=== PATIENT | male | born 1960 | race Caucasian/White ===

== ENCOUNTER 2017-09-25 00:34 | Inpatient (IN) | payer MEDICAID ==
[~2017-09-25] VITALS: Ht 5787.1 cm; Wt 85.0 kg
[~2017-09-25 00:34] MED LIST: ALBU18HF2 INH; BUDE10.2 IH; DILT240C96 PO; DOCU100C23 PO; LACT10SO PO; LOSA50TA3 PO; METF850T PO
[2017-09-25] MEDS ORDERED: normal saline 1000ml 1,000 ML IV ONE (00:48)
[2017-09-25] MEDS ORDERED: methylPREDNISolone sod succ 125mg/2ml vial IV ONE (00:50)
[2017-09-25 01:43] LABS: PARTIAL THROMBOPLASTIN TIME 29 SECONDS (22-32); PROTHROMBIN TIME 10.6 SECONDS (9.0-12.0)
[2017-09-25] MEDS: albuterol 2.5 MG/3 ML nebule CONTNEB PRN ×2 (01:45→13:35)
[2017-09-25 01:50] LABS: BASOPHILS % (AUTO) 0.3 % (0-1); EOSINOPHILS % (AUTO) 0.3 % (0-6); HEMATOCRIT 38.5 % (42.0-52.0); LYMPHOCYTES # (AUTO) 0.8 X10'3 (1.1-4.8); LYMPHOCYTES % (AUTO) 9.8 % (21-51); MEAN CORPUSCULAR HEMOGLOBIN 32.6 PG (27.0-31.0); MEAN CORPUSCULAR HGB CONC 33.7 % (33.0-36.5); MEAN CORPUSCULAR VOLUME 96.7 FL (78-98); MEAN PLATELET VOLUME 7.4 FL (7.4-10.4); MONOCYTES # (AUTO) 1.1 X10'3 (0-0.9); MONOCYTES % (AUTO) 14.3 % (2-12); NEUTROPHILS # (AUTO) 5.9 X10'3 (1.8-7.7); NEUTROPHILS % (AUTO) 75.3 % (42-75); PLATELET COUNT 185 X10'3 (140-440); RED BLOOD COUNT 3.98 X10'6 (4.70-6.10); RED CELL DISTRIBUTION WIDTH 12.8 % (11.5-14.5); WHITE BLOOD COUNT 7.9 X10'3 (4.5-11.0)
[2017-09-25 01:55] LABS: ALANINE AMINOTRANSFERASE 25 U/L (12-78); ALBUMIN 3.3 G/DL (3.4-5.0); ALBUMIN/GLOBULIN RATIO 0.7 (1.1-1.5); ALKALINE PHOSPHATASE 73 IU/L (46-116); ANION GAP 4 (8-16); ASPARTATE AMINO TRANSFERASE 17 U/L (10-37); BILIRUBIN,TOTAL 0.5 MG/DL (0.1-1.0); BLOOD UREA NITROGEN 10 MG/DL (7-18); BUN/CREATININE RATIO 14.1 (5.4-32.0); CHLORIDE 95 MMOL/L (99-107); CREATININE 0.71 MG/DL (0.60-1.10); GLUCOSE 126 MG/DL (70-104); MAGNESIUM 1.6 MG/DL (1.5-2.4); POTASSIUM 3.9 MMOL/L (3.5-5.1); SODIUM 135 MMOL/L (135-145); TOTAL CARBON DIOXIDE 35.7 MMOL/L (24-32); TOTAL PROTEIN 8.3 G/DL (6.4-8.2); eGFR > 90 ML/MIN
[2017-09-25] MEDS ORDERED: CefTRIAXone 2gm/NS 100ml IVPB 100 ML IV ONE (04:30)
[2017-09-25] MEDS ORDERED: azithromycin/NS 500mg/250ml 250 ML IV ONE (04:30)
[2017-09-25] MEDS ORDERED: normal saline 1000ML IV soln IVB ONE (04:30)
[2017-09-25] MEDS ORDERED: oseltamivir phos 75mg capsule PO ONE (04:30)
[2017-09-25] MEDS ORDERED: albuterol 2.5 MG/3 ML nebule NEB ONE (04:30)
[2017-09-25] MEDS ORDERED: ACET325T53 PO (04:53)
[2017-09-25] MEDS ORDERED: TIOT18CA3 PO (04:53)
[2017-09-25] MEDS ORDERED: DILT120C51 PO (04:53)
[2017-09-25] MEDS ORDERED: ATOR20TA PO (04:53)
[2017-09-25] MEDS ORDERED: MOME13HF2 INH (04:53)
[2017-09-25] MEDS ORDERED: OMEP40CA37 PO (04:53)
[2017-09-25] MEDS: normal saline 1000ml 1,000 ML IV SCH ×3 (05:47→21:06)
[2017-09-25] MEDS ORDERED: magnesium hydroxide 30ml (MOM) UD suspension PO PRN (05:50)
[2017-09-25] MEDS ORDERED: magnesium 4gm in 100ml NS 100 ML IV PRN (05:50)
[2017-09-25] MEDS ORDERED: acetaminophen 325mg tablet PO PRN (05:50)
[2017-09-25] MEDS ORDERED: magnesium 2GM in 50ml NS 50 ML IV PRN (05:50)
[2017-09-25] MEDS ORDERED: ondansetron/PF 4mg/2ml inj IV PRN (05:50)
[2017-09-25] MEDS ORDERED: potassium Cl 20 mEq SR tablet PO PRN ×2 (05:50)
[2017-09-25] MEDS ORDERED: potassium Cl 40MEQ/NS 500ml 500 ML IV PRN ×2 (05:50)
[2017-09-25] MEDS ORDERED: magnesium Cl slow-release 64mg tablet PO PRN (05:50)
[2017-09-25] MEDS ORDERED: mag hydrox/Alum hydrox/simeth 30ml oral suspension PO PRN (05:50)
[2017-09-25] MEDS ORDERED: etomidate 2mg/ml inj. ONE (06:00)
[2017-09-25] MEDS ORDERED: rocuronium 10mg/ml inj IV ONE (06:00)
[2017-09-25 06:16] LABS: PLATELET ESTIMATE NORMAL; TOTAL CELLS COUNTED 100
[2017-09-25 06:32] LABS: HEMOGLOBIN A1C 5.5 % (4.5-6.2)
[2017-09-25] MEDS: K and/or MAG REPLACEMENT MC SCH (06:45)
[2017-09-25] MEDS: pantoprazole 40mg Tablet.DR PO SCH (07:35)
[2017-09-25] MEDS ORDERED: metFORMIN 850mg tablet PO SCH (08:00)
[2017-09-25] MEDS: CefTRIAXone 2gm/NS 100ml IVPB 100 ML IV SCH (08:35)
[2017-09-25] MEDS: diltiazem CD 120mg capsule (once-daily) PO SCH (08:35)
[2017-09-25] MEDS: oseltamivir phos 75mg capsule PO SCH ×2 (08:37→21:03)
[2017-09-25] MEDS: heparin, porcine 5000 units/ml vial SQ SCH ×2 (08:40→21:04)
[2017-09-25 10:15] VITALS: BP 153/84
[2017-09-25 11:41] VITALS: BP 138/69
[2017-09-25] MEDS ORDERED: ipratropium/albuterol 3ml nebule ONE (13:50)
[2017-09-25] MEDS: ipratropium/albuterol 3ml nebule NEB PRN ×2 (13:55→21:22)
[2017-09-25] MEDS ORDERED: glucagon, human recombinant 1mg kit SUBCUT PRN (14:30)
[2017-09-25] MEDS ORDERED: dextrose ORAL solution 15 GM/59 ML bottle PO PRN ×2 (14:30)
[2017-09-25] MEDS ORDERED: MESSAGE TO PHARMACY PO ONE (14:30)
[2017-09-25] MEDS ORDERED: dextrose 50%-water 50ml dispensing syringe IV PRN ×2 (14:30)
[2017-09-25] MEDS: methylPREDNISolone sod succ 125mg/2ml vial IV SCH (15:46)
[2017-09-25 18:00] VITALS: BP 140/77
[2017-09-25] MEDS: insulin glargine (Lantus) pen - multi-dose SQ SCH (21:00)
[2017-09-25] MEDS: atorvastatin 20mg tablet PO SCH (21:02)
[2017-09-25] MEDS: temazepam 15mg capsule PO PRN (21:03)
[2017-09-25] MEDS: lactobacillus rhamnosus 10,000 MMU CELLS/CAPSULE PO SCH (21:03)
[2017-09-26] VITALS: BP 137/76
[2017-09-26] MEDS: methylPREDNISolone sod succ 125mg/2ml vial IV SCH ×3 (01:36→16:08)
[2017-09-26 05:26] LABS: BASOPHILS % (AUTO) 0 % (0-1); EOSINOPHILS # (AUTO) 0.1 X10'3 (0-0.9); EOSINOPHILS % (AUTO) 0.6 % (0-6); HEMATOCRIT 33.7 % (42.0-52.0); HEMOGLOBIN 11.4 g/dl (14.0-17.9); LYMPHOCYTES # (AUTO) 0.8 X10'3 (1.1-4.8); LYMPHOCYTES % (AUTO) 7.6 % (21-51); MEAN CORPUSCULAR HEMOGLOBIN 33.1 PG (27.0-31.0); MEAN CORPUSCULAR HGB CONC 33.9 % (33.0-36.5); MEAN CORPUSCULAR VOLUME 97.4 FL (78-98); MEAN PLATELET VOLUME 7.2 FL (7.4-10.4); MONOCYTES # (AUTO) 0.9 X10'3 (0-0.9); MONOCYTES % (AUTO) 8.6 % (2-12); NEUTROPHILS # (AUTO) 8.6 X10'3 (1.8-7.7); NEUTROPHILS % (AUTO) 83.2 % (42-75); PLATELET COUNT 186 X10'3 (140-440); RED BLOOD COUNT 3.46 X10'6 (4.70-6.10); RED CELL DISTRIBUTION WIDTH 13.4 % (11.5-14.5); WHITE BLOOD COUNT 10.3 X10'3 (4.5-11.0)
[2017-09-26 05:53] LABS: ALBUMIN 2.9 G/DL (3.4-5.0); ANION GAP 8 (8-16); BLOOD UREA NITROGEN 15 MG/DL (7-18); BUN/CREATININE RATIO 21.1 (5.4-32.0); CALCIUM 8.6 MG/DL (8.5-10.1); CHLORIDE 102 MMOL/L (99-107); CHOL/HDL RATIO 4.5 (0.00-4.99); CHOLESTEROL 140 MG/DL (0-200); CREATININE 0.71 MG/DL (0.60-1.10); GLUCOSE 125 MG/DL (70-104); HDL CHOLESTEROL 31 MG/DL (35-60); LDL CHOLESTEROL 73 MG/DL (50-100); POTASSIUM 4.4 MMOL/L (3.5-5.1); SODIUM 142 MMOL/L (135-145); TOTAL CARBON DIOXIDE 32.5 MMOL/L (24-32); TRIGLYCERIDES 154 MG/DL (20-135); eGFR > 90 ML/MIN
[2017-09-26 06:44] VITALS: BP 140/66
[2017-09-26] MEDS: ipratropium/albuterol 3ml nebule NEB PRN ×3 (07:40→21:50)
[2017-09-26] MEDS: CefTRIAXone 2gm/NS 100ml IVPB 100 ML IV SCH (07:50)
[2017-09-26] MEDS: diltiazem CD 120mg capsule (once-daily) PO SCH (08:00)
[2017-09-26] MEDS: K and/or MAG REPLACEMENT MC SCH (08:00)
[2017-09-26] MEDS: pantoprazole 40mg Tablet.DR PO SCH (08:00)
[2017-09-26] MEDS: oseltamivir phos 75mg capsule PO SCH ×2 (08:01→21:08)
[2017-09-26] MEDS: lactobacillus rhamnosus 10,000 MMU CELLS/CAPSULE PO SCH ×2 (08:02→21:08)
[2017-09-26] MEDS: heparin, porcine 5000 units/ml vial SQ SCH ×2 (08:03→21:09)
[2017-09-26] MEDS: normal saline 1000ml 1,000 ML IV SCH ×2 (09:47→21:58)
[2017-09-26 11:45] VITALS: BP 158/83
[2017-09-26 20:01] VITALS: BP 154/84
[2017-09-26] MEDS: insulin glargine (Lantus) pen - multi-dose SQ SCH (21:00)
[2017-09-26] MEDS: atorvastatin 20mg tablet PO SCH (21:08)
[2017-09-26] MEDS: temazepam 15mg capsule PO PRN (21:08)
[2017-09-26] MEDS: HYDROcodone/acetaminophen 5mg/325mg tablet PO PRN (21:09)
[2017-09-27] VITALS: BP 148/79
[2017-09-27] MEDS: methylPREDNISolone sod succ 125mg/2ml vial IV SCH ×4 (01:05→23:49)
[2017-09-27 05:10] LABS: BASOPHILS % (AUTO) 0 % (0-1); EOSINOPHILS % (AUTO) 0 % (0-6); HEMATOCRIT 32.1 % (42.0-52.0); HEMOGLOBIN 10.8 g/dl (14.0-17.9); LYMPHOCYTES # (AUTO) 0.8 X10'3 (1.1-4.8); MEAN CORPUSCULAR HEMOGLOBIN 32.3 PG (27.0-31.0); MEAN CORPUSCULAR HGB CONC 33.7 % (33.0-36.5); MEAN CORPUSCULAR VOLUME 95.8 FL (78-98); MEAN PLATELET VOLUME 6.9 FL (7.4-10.4); MONOCYTES % (AUTO) 5.8 % (2-12); NEUTROPHILS # (AUTO) 14.9 X10'3 (1.8-7.7); NEUTROPHILS % (AUTO) 89.2 % (42-75); PLATELET COUNT 195 X10'3 (140-440); RED BLOOD COUNT 3.35 X10'6 (4.70-6.10); RED CELL DISTRIBUTION WIDTH 13.3 % (11.5-14.5); WHITE BLOOD COUNT 16.7 X10'3 (4.5-11.0)
[2017-09-27 05:40] LABS: ALBUMIN 2.7 G/DL (3.4-5.0); ANION GAP 6 (8-16); BLOOD UREA NITROGEN 13 MG/DL (7-18); BUN/CREATININE RATIO 18.8 (5.4-32.0); CALCIUM 7.9 MG/DL (8.5-10.1); CHLORIDE 103 MMOL/L (99-107); CREATININE 0.69 MG/DL (0.60-1.10); GLUCOSE 155 MG/DL (70-104); SODIUM 142 MMOL/L (135-145); TOTAL CARBON DIOXIDE 33.3 MMOL/L (24-32); eGFR > 90 ML/MIN
[2017-09-27] MEDS: K and/or MAG REPLACEMENT MC SCH (06:40)
[2017-09-27 06:44] LABS: BANDS% (MANUAL) 10 % (0-10); LYMPHOCYTES % (MANUAL) 5 % (21-51); MONOCYTES % (MANUAL) 8 % (2-12); MYELOCYTES % (MANUAL) 1 % (0-0); NEUTROPHILS % (MANUAL) 76 % (42-75); PLATELET ESTIMATE NORMAL; TOTAL CELLS COUNTED 100
[2017-09-27] MEDS: CefTRIAXone 2gm/NS 100ml IVPB 100 ML IV SCH (06:58)
[2017-09-27] MEDS: heparin, porcine 5000 units/ml vial SQ SCH ×2 (06:58→20:23)
[2017-09-27] MEDS: oseltamivir phos 75mg capsule PO SCH ×2 (07:00→20:23)
[2017-09-27] MEDS: lactobacillus rhamnosus 10,000 MMU CELLS/CAPSULE PO SCH ×2 (07:00→20:23)
[2017-09-27] MEDS: pantoprazole 40mg Tablet.DR PO SCH (07:00)
[2017-09-27] MEDS: diltiazem CD 120mg capsule (once-daily) PO SCH (07:00)
[2017-09-27] MEDS: normal saline 1000ml 1,000 ML IV SCH ×2 (07:01→17:06)
[2017-09-27] MEDS: ipratropium/albuterol 3ml nebule NEB PRN ×4 (07:15→23:46)
[2017-09-27 07:26] VITALS: BP 148/79
[2017-09-27 11:37] VITALS: BP 142/76
[2017-09-27] MEDS: HYDROcodone/acetaminophen 10/325mg tab PO PRN ×2 (12:24→20:26)
[2017-09-27 14:20] VITALS: BP 163/89
[2017-09-27] MEDS ORDERED: pantoprazole 40 MG vial IV ONE (19:30)
[2017-09-27 20:00] VITALS: BP 160/88
[2017-09-27] MEDS: atorvastatin 20mg tablet PO SCH (20:23)
[2017-09-27] MEDS: insulin glargine (Lantus) pen - multi-dose SQ SCH (20:54)
[2017-09-28] VITALS: BP 164/79
[2017-09-28] MEDS: normal saline 1000ml 1,000 ML IV SCH ×3 (04:00→23:31)
[2017-09-28 05:21] LABS: BASOPHILS % (AUTO) 0 % (0-1); EOSINOPHILS # (AUTO) 0.1 X10'3 (0-0.9); EOSINOPHILS % (AUTO) 0.7 % (0-6); HEMATOCRIT 33.9 % (42.0-52.0); HEMOGLOBIN 11.5 g/dl (14.0-17.9); LYMPHOCYTES # (AUTO) 0.7 X10'3 (1.1-4.8); LYMPHOCYTES % (AUTO) 4.4 % (21-51); MEAN CORPUSCULAR HEMOGLOBIN 32.8 PG (27.0-31.0); MEAN CORPUSCULAR HGB CONC 33.9 % (33.0-36.5); MEAN CORPUSCULAR VOLUME 96.8 FL (78-98); MEAN PLATELET VOLUME 7.4 FL (7.4-10.4); MONOCYTES # (AUTO) 0.6 X10'3 (0-0.9); MONOCYTES % (AUTO) 3.6 % (2-12); NEUTROPHILS # (AUTO) 14.6 X10'3 (1.8-7.7); NEUTROPHILS % (AUTO) 91.3 % (42-75); PLATELET COUNT 166 X10'3 (140-440); RED BLOOD COUNT 3.51 X10'6 (4.70-6.10); RED CELL DISTRIBUTION WIDTH 13.4 % (11.5-14.5)
[2017-09-28] MEDS: ipratropium/albuterol 3ml nebule NEB PRN ×4 (05:25→16:07)
[2017-09-28 05:35] LABS: ALBUMIN 2.9 G/DL (3.4-5.0); ANION GAP 6 (8-16); BLOOD UREA NITROGEN 12 MG/DL (7-18); BUN/CREATININE RATIO 16.9 (5.4-32.0); CALCIUM 8.1 MG/DL (8.5-10.1); CHLORIDE 102 MMOL/L (99-107); CREATININE 0.71 MG/DL (0.60-1.10); GLUCOSE 166 MG/DL (70-104); MAGNESIUM 2.1 MG/DL (1.5-2.4); POTASSIUM 3.7 MMOL/L (3.5-5.1); SODIUM 141 MMOL/L (135-145); TOTAL CARBON DIOXIDE 32.9 MMOL/L (24-32); eGFR > 90 ML/MIN
[2017-09-28 07:00] VITALS: BP 183/85
[2017-09-28 07:11] LABS: BANDS% (MANUAL) 4 % (0-10); LYMPHOCYTES % (MANUAL) 2 % (21-51); MONOCYTES % (MANUAL) 4 % (2-12); NEUTROPHILS % (MANUAL) 90 % (42-75); TOTAL CELLS COUNTED 100
[2017-09-28 07:12] LABS: PLATELET ESTIMATE NORMAL
[2017-09-28] MEDS: pantoprazole 40mg Tablet.DR PO SCH (07:13)
[2017-09-28] MEDS: lactobacillus rhamnosus 10,000 MMU CELLS/CAPSULE PO SCH ×2 (07:13→21:19)
[2017-09-28] MEDS: methylPREDNISolone sod succ 125mg/2ml vial IV SCH ×3 (07:13→23:31)
[2017-09-28] MEDS: diltiazem CD 120mg capsule (once-daily) PO SCH (07:13)
[2017-09-28] MEDS: oseltamivir phos 75mg capsule PO SCH ×2 (07:13→21:19)
[2017-09-28] MEDS: HYDROcodone/acetaminophen 10/325mg tab PO PRN (07:14)
[2017-09-28] MEDS: CefTRIAXone 2gm/NS 100ml IVPB 100 ML IV SCH (07:14)
[2017-09-28] MEDS: heparin, porcine 5000 units/ml vial SQ SCH ×2 (07:14→21:18)
[2017-09-28] MEDS: K and/or MAG REPLACEMENT MC SCH (07:30)
[2017-09-28 11:34] VITALS: BP 165/74
[2017-09-28] MEDS ORDERED: LORazepam 2 mg/ml vial IV ONE (17:05)
[2017-09-28] MEDS ORDERED: iohexol 350MG/ML 100ml bottle IV ONE (19:25)
[2017-09-28 20:00] VITALS: BP 155/79
[2017-09-28] MEDS: insulin glargine (Lantus) pen - multi-dose SQ SCH (21:00)
[2017-09-28] MEDS: atorvastatin 20mg tablet PO SCH (21:18)
[2017-09-28] MEDS: temazepam 15mg capsule PO PRN (21:21)
[2017-09-29] VITALS: BP 164/84
[2017-09-29] MEDS: ipratropium/albuterol 3ml nebule NEB PRN ×4 (03:47→18:53)
[2017-09-29 05:13] LABS: BASOPHILS % (AUTO) 0 % (0-1); EOSINOPHILS % (AUTO) 0 % (0-6); HEMATOCRIT 34.1 % (42.0-52.0); HEMOGLOBIN 11.4 g/dl (14.0-17.9); LYMPHOCYTES # (AUTO) 0.6 X10'3 (1.1-4.8); LYMPHOCYTES % (AUTO) 5.2 % (21-51); MEAN CORPUSCULAR HEMOGLOBIN 32.4 PG (27.0-31.0); MEAN CORPUSCULAR HGB CONC 33.6 % (33.0-36.5); MEAN CORPUSCULAR VOLUME 96.3 FL (78-98); MEAN PLATELET VOLUME 7.4 FL (7.4-10.4); MONOCYTES # (AUTO) 0.6 X10'3 (0-0.9); MONOCYTES % (AUTO) 5.2 % (2-12); NEUTROPHILS % (AUTO) 89.6 % (42-75); PLATELET COUNT 157 X10'3 (140-440); RED BLOOD COUNT 3.54 X10'6 (4.70-6.10); RED CELL DISTRIBUTION WIDTH 12.9 % (11.5-14.5); WHITE BLOOD COUNT 11.1 X10'3 (4.5-11.0)
[2017-09-29 05:22] LABS: ALBUMIN 2.9 G/DL (3.4-5.0); ANION GAP 5 (8-16); BLOOD UREA NITROGEN 13 MG/DL (7-18); BUN/CREATININE RATIO 22.8 (5.4-32.0); CALCIUM 8.2 MG/DL (8.5-10.1); CHLORIDE 102 MMOL/L (99-107); CREATININE 0.57 MG/DL (0.60-1.10); GLUCOSE 163 MG/DL (70-104); POTASSIUM 3.5 MMOL/L (3.5-5.1); SODIUM 143 MMOL/L (135-145); TOTAL CARBON DIOXIDE 35.7 MMOL/L (24-32); eGFR > 90 ML/MIN
[2017-09-29 07:00] VITALS: BP 187/92
[2017-09-29] MEDS: K and/or MAG REPLACEMENT MC SCH (08:00)
[2017-09-29] MEDS: lactobacillus rhamnosus 10,000 MMU CELLS/CAPSULE PO SCH ×2 (08:12→19:07)
[2017-09-29] MEDS: oseltamivir phos 75mg capsule PO SCH ×2 (08:12→19:07)
[2017-09-29] MEDS: pantoprazole 40mg Tablet.DR PO SCH (08:12)
[2017-09-29] MEDS: diltiazem CD 120mg capsule (once-daily) PO SCH (08:12)
[2017-09-29] MEDS: CefTRIAXone 2gm/NS 100ml IVPB 100 ML IV SCH (08:13)
[2017-09-29] MEDS: heparin, porcine 5000 units/ml vial SQ SCH ×2 (08:13→19:09)
[2017-09-29] MEDS: methylPREDNISolone sod succ 125mg/2ml vial IV SCH ×3 (08:13→23:33)
[2017-09-29] MEDS: normal saline 1000ml 1,000 ML IV SCH ×2 (09:51→19:10)
[2017-09-29 11:00] VITALS: BP 164/85
[2017-09-29] MEDS ORDERED: saliva stimulant agent 45ml spray MM PRN (12:20)
[2017-09-29] MEDS: insulin Lispro (HumaLOG) vial - multi-dose SQ SCH ×2 (13:12→19:07)
[2017-09-29] MEDS: LORazepam 1 MG tablet PO PRN (16:36)
[2017-09-29] MEDS: HYDROcodone/acetaminophen 10/325mg tab PO PRN (17:37)
[2017-09-29 20:00] VITALS: BP 166/71
[2017-09-29] MEDS: insulin glargine (Lantus) pen - multi-dose SQ SCH (21:05)
[2017-09-29] MEDS: atorvastatin 20mg tablet PO SCH (21:05)
[2017-09-30] VITALS (8 sets, daily range): BP systolic 90–195; BP diastolic 57–98
[2017-09-30] MEDS: ipratropium/albuterol 3ml nebule NEB PRN ×3 (03:00→15:16)
[2017-09-30] MEDS: normal saline 1000ml 1,000 ML IV SCH (05:25)
[2017-09-30 05:58] LABS: BASOPHILS % (AUTO) 0.2 % (0-1); EOSINOPHILS % (AUTO) 0 % (0-6); HEMATOCRIT 38.3 % (42.0-52.0); LYMPHOCYTES # (AUTO) 0.6 X10'3 (1.1-4.8); LYMPHOCYTES % (AUTO) 8.3 % (21-51); MEAN CORPUSCULAR HEMOGLOBIN 32.7 PG (27.0-31.0); MEAN CORPUSCULAR HGB CONC 33.9 % (33.0-36.5); MEAN CORPUSCULAR VOLUME 96.5 FL (78-98); MEAN PLATELET VOLUME 7.6 FL (7.4-10.4); MONOCYTES # (AUTO) 0.4 X10'3 (0-0.9); MONOCYTES % (AUTO) 5.8 % (2-12); NEUTROPHILS # (AUTO) 6.1 X10'3 (1.8-7.7); NEUTROPHILS % (AUTO) 85.7 % (42-75); PLATELET COUNT 170 X10'3 (140-440); RED BLOOD COUNT 3.97 X10'6 (4.70-6.10); RED CELL DISTRIBUTION WIDTH 13.2 % (11.5-14.5); WHITE BLOOD COUNT 7.1 X10'3 (4.5-11.0)
[2017-09-30 06:16] LABS: ALBUMIN 3.1 G/DL (3.4-5.0); ANION GAP 8 (8-16); BLOOD UREA NITROGEN 15 MG/DL (7-18); BUN/CREATININE RATIO 17.6 (5.4-32.0); CALCIUM 8.3 MG/DL (8.5-10.1); CHLORIDE 97 MMOL/L (99-107); CREATININE 0.85 MG/DL (0.60-1.10); GLUCOSE 245 MG/DL (70-104); SODIUM 141 MMOL/L (135-145); TOTAL CARBON DIOXIDE 36.2 MMOL/L (24-32); eGFR > 90 ML/MIN
[2017-09-30 07:07] LABS: PLATELET ESTIMATE NORMAL; TOTAL CELLS COUNTED 100
[2017-09-30 07:44] LABS: POTASSIUM 2.9 MMOL/L (3.5-5.1)
[2017-09-30] MEDS: K and/or MAG REPLACEMENT MC SCH (08:00)
[2017-09-30] MEDS: methylPREDNISolone sod succ 125mg/2ml vial IV SCH ×2 (08:33→15:36)
[2017-09-30] MEDS: CefTRIAXone 2gm/NS 100ml IVPB 100 ML IV SCH (08:33)
[2017-09-30] MEDS: lactobacillus rhamnosus 10,000 MMU CELLS/CAPSULE PO SCH ×2 (08:34→20:00)
[2017-09-30] MEDS: diltiazem CD 120mg capsule (once-daily) PO SCH (08:34)
[2017-09-30] MEDS: pantoprazole 40mg Tablet.DR PO SCH (08:34)
[2017-09-30] MEDS: heparin, porcine 5000 units/ml vial SQ SCH (08:34)
[2017-09-30] MEDS ORDERED: magnesium Cl slow-release 64mg tablet PO PRN (10:30)
[2017-09-30] MEDS ORDERED: magnesium 4gm in 100ml NS 100 ML IV PRN (10:30)
[2017-09-30] MEDS ORDERED: potassium Cl 40MEQ/NS 500ml 500 ML IV PRN ×2 (10:30)
[2017-09-30] MEDS ORDERED: magnesium 2GM in 50ml NS 50 ML IV PRN (10:30)
[2017-09-30] MEDS ORDERED: potassium Cl 20 mEq SR tablet PO PRN ×2 (10:30)
[2017-09-30] MEDS: insulin Lispro (HumaLOG) vial - multi-dose SQ SCH (10:47)
[2017-09-30] MEDS ORDERED: ketorolac tromethamine 15mg/ml inj. IM PRN (11:20)
[2017-09-30] MEDS ORDERED: ketorolac tromethamine 15mg/ml inj. IV PRN (11:30)
[2017-09-30] MEDS: LORazepam 1 MG tablet PO PRN (11:46)
[2017-09-30] MEDS: HYDROcodone/acetaminophen 10/325mg tab PO PRN (12:35)
[2017-09-30] MEDS ORDERED: LORazepam 2 mg/ml vial IM ONE (15:20)
[2017-09-30] MEDS ORDERED: LORazepam 2 mg/ml vial IV ONE ×5 (15:20→17:40)
[2017-09-30] MEDS ORDERED: LORazepam 2 mg/ml vial ONE (15:43)
[2017-09-30] MEDS ORDERED: iohexol 350MG/ML 100ml bottle IV ONE (16:03)
[2017-09-30 16:56] LABS: ABG BASE EXCESS -2.9 mmol/L (-2.0-3.0); ABG HCO3 25.8 mmol/L (22.0-26.0); ABG OXYGEN SATURATION 95.6 % (95-98); ABG PCO2 (T) 62.5 mmHg (35.0-48.0); ABG PH (T) 7.234 (7.350-7.450); ABG PO2 (T) 96.4 mmHg (83-108); ALLEN'S TEST Positive; FCOHb 0.1 % (0.5-1.5); FLOW 3 L/min; FMetHb 0.3 % (0.3-1.12); FO2Hb 95.2 % (94-100); TOTAL HEMOGLOBIN 14.4 G/dl (14.0-18.0)
[2017-09-30 17:06] LABS: BASOPHILS % (AUTO) 0.4 % (0-1); EOSINOPHILS # (AUTO) 0.1 X10'3 (0-0.9); EOSINOPHILS % (AUTO) 0.6 % (0-6); HEMATOCRIT 40.3 % (42.0-52.0); HEMOGLOBIN 13.5 g/dl (14.0-17.9); LYMPHOCYTES # (AUTO) 0.8 X10'3 (1.1-4.8); LYMPHOCYTES % (AUTO) 7.4 % (21-51); MEAN CORPUSCULAR HEMOGLOBIN 32.6 PG (27.0-31.0); MEAN CORPUSCULAR HGB CONC 33.6 % (33.0-36.5); MEAN CORPUSCULAR VOLUME 97.3 FL (78-98); MONOCYTES # (AUTO) 0.9 X10'3 (0-0.9); MONOCYTES % (AUTO) 8.3 % (2-12); NEUTROPHILS # (AUTO) 8.8 X10'3 (1.8-7.7); NEUTROPHILS % (AUTO) 83.3 % (42-75); PLATELET COUNT 194 X10'3 (140-440); RED BLOOD COUNT 4.14 X10'6 (4.70-6.10); RED CELL DISTRIBUTION WIDTH 12.9 % (11.5-14.5); WHITE BLOOD COUNT 10.6 X10'3 (4.5-11.0)
[2017-09-30 17:20] LABS: ALANINE AMINOTRANSFERASE 84 U/L (12-78); ALBUMIN 3.1 G/DL (3.4-5.0); ALBUMIN/GLOBULIN RATIO 0.7 (1.1-1.5); ALKALINE PHOSPHATASE 60 IU/L (46-116); ANION GAP 16 (8-16); ASPARTATE AMINO TRANSFERASE 28 U/L (10-37); BILIRUBIN,TOTAL 0.4 MG/DL (0.1-1.0); BLOOD UREA NITROGEN 17 MG/DL (7-18); BUN/CREATININE RATIO 15.9 (5.4-32.0); CALCIUM 8.3 MG/DL (8.5-10.1); CHLORIDE 96 MMOL/L (99-107); CREATININE 1.07 MG/DL (0.60-1.10); GLUCOSE 132 MG/DL (70-104); MAGNESIUM 2.1 MG/DL (1.5-2.4); SODIUM 142 MMOL/L (135-145); TOTAL CARBON DIOXIDE 30.5 MMOL/L (24-32); TOTAL PROTEIN 7.3 G/DL (6.4-8.2); eGFR 71 ML/MIN
[2017-09-30 17:36] LABS: NUCLEATED RED BLOOD CELLS 2 /100WBC (0-0); PLATELET ESTIMATE NORMAL; TOTAL CELLS COUNTED 100
[2017-09-30 17:41] LABS: CHOL/HDL RATIO 3.8 (0.00-4.99); CHOLESTEROL 153 MG/DL (0-200); HDL CHOLESTEROL 40 MG/DL (35-60); LDL CHOLESTEROL 72 MG/DL (50-100); TRIGLYCERIDES 319 MG/DL (20-135); TROPONIN I < 0.04 NG/ML (0.0-0.05)
[2017-09-30] MEDS ORDERED: levetiracetam 250mg tablet PO SCH (17:45)
[2017-09-30] MEDS ORDERED: LORazepam 2 mg/ml vial IV PRN (18:35)
[2017-09-30] MEDS: levetiracetam inj 500 MG in normal saline 100ml IV soln 95 ML IV SCH ×2 (18:42→19:28)
[2017-09-30] MEDS ORDERED: phenytoin sod 50mg/ml 2ml vial IV STA (19:31)
[2017-09-30] MEDS ORDERED: phenytoin sod inj 1,000 MG in normal saline 100ml IV soln 80 ML IV ONE (19:40)
[2017-09-30 20:30] LABS: ABG BASE EXCESS 11.1 mmol/L (-2.0-3.0); ABG HCO3 45.1 mmol/L (22.0-26.0); ABG OXYGEN SATURATION 94.4 % (95-98); ABG PCO2 (T) 128.8 mmHg (35.0-48.0); ABG PH (T) 7.161 (7.350-7.450); ABG PO2 (T) 96.3 mmHg (83-108); FLOW 10 L/min; FMetHb 0.5 % (0.3-1.12); FO2Hb 93.9 % (94-100); PATIENT TEMPERATURE 36.9; RESPIRATORY RATE (OBSERVED) 16 b/min; TOTAL HEMOGLOBIN 13.8 G/dl (14.0-18.0)
[2017-09-30] MEDS ORDERED: propofol 1000mg/100ml bottle 100 ML IV PRN (20:33)
[2017-09-30] MEDS ORDERED: morphine 4 MG/ML inj SYRINge IV ONE (20:35)
[2017-09-30] MEDS ORDERED: etomidate 2mg/ml inj. IV ONE (20:35)
[2017-09-30] MEDS ORDERED: ipratropium/albuterol 3ml nebule NEB PRN (20:35)
[2017-09-30] MEDS: insulin glargine (Lantus) pen - multi-dose SQ SCH (21:00)
[2017-09-30] MEDS: atorvastatin 20mg tablet PO SCH (21:00)
[2017-09-30 21:51] LABS: ABG BASE EXCESS 2.3 mmol/L (-2.0-3.0); ABG HCO3 30.6 mmol/L (22.0-26.0); ABG OXYGEN SATURATION 94.1 % (95-98); ABG PCO2 (T) 66.1 mmHg (35.0-48.0); ABG PH (T) 7.283 (7.350-7.450); ALLEN'S TEST Positive; FCOHb 0.1 % (0.5-1.5); FMetHb 0.3 % (0.3-1.12); FO2Hb 93.7 % (94-100); MINUTE VOLUME 8 L/min; PATIENT TEMPERATURE 36.9; PEEP 5 cm H2O; RESPIRATORY RATE 20 b/min; RESPIRATORY RATE (OBSERVED) 20 b/min; TIDAL VOLUME 375 mL; TOTAL HEMOGLOBIN 12.8 G/dl (14.0-18.0)
[2017-09-30] MEDS: ipratropium/albuterol 3ml nebule NEB SCH (23:04)
[2017-10-01] VITALS (22 sets, daily range): BP systolic 104–157; BP diastolic 64–98
[2017-10-01] MEDS: phenytoin sod 50mg/ml 2ml vial IV SCH ×3 (00:32→15:40)
[2017-10-01] MEDS: methylPREDNISolone sod succ 125mg/2ml vial IV SCH ×3 (00:41→15:39)
[2017-10-01] MEDS: heparin, porcine 5000 units/ml vial SQ SCH ×3 (00:42→21:48)
[2017-10-01] MEDS ORDERED: potassium Cl 40MEQ/NS 500ml 500 ML IV ONE (00:55)
[2017-10-01] MEDS: ipratropium/albuterol 3ml nebule NEB SCH ×6 (03:01→23:20)
[2017-10-01 03:50] LABS: ABG BASE EXCESS 9.1 mmol/L (-2.0-3.0); ABG HCO3 35.6 mmol/L (22.0-26.0); ABG OXYGEN SATURATION 89.7 % (95-98); ABG PCO2 (T) 57.1 mmHg (35.0-48.0); ABG PH (T) 7.413 (7.350-7.450); ABG PO2 (T) 61.6 mmHg (83-108); ALLEN'S TEST Positive; FCOHb 0.5 % (0.5-1.5); FMetHb 0.1 % (0.3-1.12); FO2Hb 89.2 % (94-100); MINUTE VOLUME 9 L/min; PEEP 5 cm H2O; RESPIRATORY RATE 22 b/min; RESPIRATORY RATE (OBSERVED) 22 b/min; TIDAL VOLUME 400 mL; TOTAL HEMOGLOBIN 13.1 G/dl (14.0-18.0)
[2017-10-01 06:41] LABS: BASOPHILS % (AUTO) 0.1 % (0-1); EOSINOPHILS % (AUTO) 0.2 % (0-6); HEMATOCRIT 36.2 % (42.0-52.0); HEMOGLOBIN 12.4 g/dl (14.0-17.9); LYMPHOCYTES # (AUTO) 0.7 X10'3 (1.1-4.8); LYMPHOCYTES % (AUTO) 7.4 % (21-51); MEAN CORPUSCULAR HEMOGLOBIN 32.8 PG (27.0-31.0); MEAN CORPUSCULAR HGB CONC 34.3 % (33.0-36.5); MEAN CORPUSCULAR VOLUME 95.6 FL (78-98); MEAN PLATELET VOLUME 8.1 FL (7.4-10.4); MONOCYTES # (AUTO) 0.9 X10'3 (0-0.9); NEUTROPHILS % (AUTO) 83.3 % (42-75); PLATELET COUNT 149 X10'3 (140-440); RED BLOOD COUNT 3.79 X10'6 (4.70-6.10); RED CELL DISTRIBUTION WIDTH 13.4 % (11.5-14.5); WHITE BLOOD COUNT 9.6 X10'3 (4.5-11.0)
[2017-10-01] MEDS: morphine/NS 100mg/100ml bag 100 ML IV SCH (06:56)
[2017-10-01 07:17] LABS: ALANINE AMINOTRANSFERASE 67 U/L (12-78); ALBUMIN 2.8 G/DL (3.4-5.0); ALBUMIN/GLOBULIN RATIO 0.8 (1.1-1.5); ALKALINE PHOSPHATASE 48 IU/L (46-116); ANION GAP 8 (8-16); ASPARTATE AMINO TRANSFERASE 20 U/L (10-37); BILIRUBIN,TOTAL 0.5 MG/DL (0.1-1.0); BLOOD UREA NITROGEN 24 MG/DL (7-18); CALCIUM 7.8 MG/DL (8.5-10.1); CHLORIDE 102 MMOL/L (99-107); GLUCOSE 191 MG/DL (70-104); MAGNESIUM 2.4 MG/DL (1.5-2.4); PHENYTOIN (DILANTIN) 14.9 UG/ML (10.0-20.0); PHOSPHORUS 3.4 MG/DL (2.3-4.5); POTASSIUM 3.5 MMOL/L (3.5-5.1); SODIUM 143 MMOL/L (135-145); TOTAL CARBON DIOXIDE 32.6 MMOL/L (24-32); TOTAL PROTEIN 6.1 G/DL (6.4-8.2); eGFR > 90 ML/MIN
[2017-10-01] MEDS: pantoprazole 40mg Tablet.DR PO SCH (07:30)
[2017-10-01] MEDS: CefTRIAXone 2gm/NS 100ml IVPB 100 ML IV SCH (07:42)
[2017-10-01] MEDS: levetiracetam inj 500 MG in normal saline 100ml IV soln 95 ML IV SCH ×2 (07:42→22:20)
[2017-10-01] MEDS: lactobacillus rhamnosus 10,000 MMU CELLS/CAPSULE PO SCH ×2 (08:00→21:47)
[2017-10-01] MEDS: diltiazem CD 120mg capsule (once-daily) PO SCH (08:00)
[2017-10-01] MEDS ORDERED: azithromycin/NS 500mg/250ml 250 ML IV SCH (08:00)
[2017-10-01] MEDS: K and/or MAG REPLACEMENT MC SCH (08:03)
[2017-10-01] MEDS: insulin Lispro (HumaLOG) vial - multi-dose SQ SCH ×3 (09:50→21:43)
[2017-10-01] MEDS: insulin glargine (Lantus) pen - multi-dose SQ SCH (21:44)
[2017-10-01] MEDS: atorvastatin 20mg tablet PO SCH (21:49)
[2017-10-02] VITALS (21 sets, daily range): BP systolic 119–180; BP diastolic 62–91
[2017-10-02] MEDS: methylPREDNISolone sod succ 125mg/2ml vial IV SCH ×3 (00:49→17:57)
[2017-10-02] MEDS: phenytoin sod 50mg/ml 2ml vial IV SCH ×3 (00:52→17:57)
[2017-10-02] MEDS: mineral oil/petrolatum ophthal oint EACHEYE SCH ×4 (02:00→20:00)
[2017-10-02] MEDS: ipratropium/albuterol 3ml nebule NEB SCH ×5 (03:16→21:39)
[2017-10-02 04:25] LABS: ABG BASE EXCESS 7.5 mmol/L (-2.0-3.0); ABG HCO3 33.6 mmol/L (22.0-26.0); ABG OXYGEN SATURATION 90.7 % (95-98); ABG PCO2 (T) 52.5 mmHg (35.0-48.0); ABG PH (T) 7.422 (7.350-7.450); ABG PO2 (T) 62.2 mmHg (83-108); ALLEN'S TEST Positive; FCOHb 0.3 % (0.5-1.5); FMetHb 0.2 % (0.3-1.12); FO2Hb 90.2 % (94-100); MINUTE VOLUME 9 L/min; PATIENT TEMPERATURE 36.4; PEEP 5 cm H2O; RESPIRATORY RATE 20 b/min; RESPIRATORY RATE (OBSERVED) 20 b/min; TIDAL VOLUME 400 mL; TOTAL HEMOGLOBIN 12.9 G/dl (14.0-18.0)
[2017-10-02 05:51] LABS: BASOPHILS % (AUTO) 0 % (0-1); EOSINOPHILS # (AUTO) 0.1 X10'3 (0-0.9); EOSINOPHILS % (AUTO) 0.8 % (0-6); HEMATOCRIT 34.9 % (42.0-52.0); HEMOGLOBIN 11.9 g/dl (14.0-17.9); LYMPHOCYTES # (AUTO) 0.5 X10'3 (1.1-4.8); LYMPHOCYTES % (AUTO) 4.8 % (21-51); MEAN CORPUSCULAR HEMOGLOBIN 32.8 PG (27.0-31.0); MEAN CORPUSCULAR HGB CONC 34.1 % (33.0-36.5); MEAN CORPUSCULAR VOLUME 96.3 FL (78-98); MEAN PLATELET VOLUME 7.8 FL (7.4-10.4); MONOCYTES # (AUTO) 0.7 X10'3 (0-0.9); MONOCYTES % (AUTO) 6.1 % (2-12); NEUTROPHILS # (AUTO) 9.8 X10'3 (1.8-7.7); NEUTROPHILS % (AUTO) 88.3 % (42-75); PLATELET COUNT 154 X10'3 (140-440); RED BLOOD COUNT 3.62 X10'6 (4.70-6.10); RED CELL DISTRIBUTION WIDTH 13.7 % (11.5-14.5); WHITE BLOOD COUNT 11.1 X10'3 (4.5-11.0)
[2017-10-02 06:49] LABS: ALANINE AMINOTRANSFERASE 52 U/L (12-78); ALBUMIN 2.7 G/DL (3.4-5.0); ALBUMIN/GLOBULIN RATIO 0.8 (1.1-1.5); ALKALINE PHOSPHATASE 45 IU/L (46-116); ANION GAP 5 (8-16); ASPARTATE AMINO TRANSFERASE 14 U/L (10-37); BILIRUBIN,TOTAL 0.4 MG/DL (0.1-1.0); BLOOD UREA NITROGEN 25 MG/DL (7-18); BUN/CREATININE RATIO 37.3 (5.4-32.0); CALCIUM 7.8 MG/DL (8.5-10.1); CHLORIDE 105 MMOL/L (99-107); CREATININE 0.67 MG/DL (0.60-1.10); GLUCOSE 150 MG/DL (70-104); MAGNESIUM 2.4 MG/DL (1.5-2.4); PHOSPHORUS 3.9 MG/DL (2.3-4.5); POTASSIUM 3.5 MMOL/L (3.5-5.1); SODIUM 146 MMOL/L (135-145); TOTAL PROTEIN 5.9 G/DL (6.4-8.2); eGFR > 90 ML/MIN
[2017-10-02] MEDS: morphine/NS 100mg/100ml bag 100 ML IV SCH (07:27)
[2017-10-02] MEDS: pantoprazole 40mg Tablet.DR PO SCH (07:30)
[2017-10-02] MEDS: K and/or MAG REPLACEMENT MC SCH (08:00)
[2017-10-02] MEDS: diltiazem CD 120mg capsule (once-daily) PO SCH (08:06)
[2017-10-02] MEDS: heparin, porcine 5000 units/ml vial SQ SCH ×2 (08:06→21:44)
[2017-10-02] MEDS: levetiracetam inj 500 MG in normal saline 100ml IV soln 95 ML IV SCH (08:07)
[2017-10-02] MEDS: lactobacillus rhamnosus 10,000 MMU CELLS/CAPSULE PO SCH ×2 (08:07→21:42)
[2017-10-02] MEDS ORDERED: racepinephrine 11.25mg/0.5ml nebule NEB PRN (13:50)
[2017-10-02] MEDS ORDERED: ipratropium/albuterol 3ml nebule NEB PRN (13:50)
[2017-10-02] MEDS: insulin glargine (Lantus) pen - multi-dose SQ SCH (21:00)
[2017-10-02] MEDS: levetiracetam 250mg tablet PO SCH (21:42)
[2017-10-02] MEDS: atorvastatin 20mg tablet PO SCH (21:45)
[2017-10-02] MEDS: LORazepam 1 MG tablet PO PRN (22:56)
[2017-10-03] VITALS (13 sets, daily range): BP systolic 122–174; BP diastolic 40–86
[2017-10-03] MEDS: methylPREDNISolone sod succ 125mg/2ml vial IV SCH ×2 (00:06→08:22)
[2017-10-03] MEDS: phenytoin sod 50mg/ml 2ml vial IV SCH ×2 (00:06→08:22)
[2017-10-03] MEDS: mineral oil/petrolatum ophthal oint EACHEYE SCH ×2 (02:00→08:00)
[2017-10-03] MEDS: ipratropium/albuterol 3ml nebule NEB SCH ×5 (03:00→21:00)
[2017-10-03 05:42] LABS: BASOPHILS % (AUTO) 0.1 % (0-1); EOSINOPHILS # (AUTO) 0.1 X10'3 (0-0.9); EOSINOPHILS % (AUTO) 0.6 % (0-6); HEMATOCRIT 36.3 % (42.0-52.0); HEMOGLOBIN 12.5 g/dl (14.0-17.9); LYMPHOCYTES # (AUTO) 0.5 X10'3 (1.1-4.8); LYMPHOCYTES % (AUTO) 5.9 % (21-51); MEAN CORPUSCULAR HEMOGLOBIN 33.2 PG (27.0-31.0); MEAN CORPUSCULAR HGB CONC 34.4 % (33.0-36.5); MEAN CORPUSCULAR VOLUME 96.5 FL (78-98); MEAN PLATELET VOLUME 7.7 FL (7.4-10.4); MONOCYTES % (AUTO) 0.4 % (2-12); NEUTROPHILS # (AUTO) 8.4 X10'3 (1.8-7.7); PLATELET COUNT 132 X10'3 (140-440); RED BLOOD COUNT 3.76 X10'6 (4.70-6.10); RED CELL DISTRIBUTION WIDTH 13.2 % (11.5-14.5); WHITE BLOOD COUNT 9.1 X10'3 (4.5-11.0)
[2017-10-03 06:21] LABS: ALANINE AMINOTRANSFERASE 65 U/L (12-78); ALBUMIN 2.7 G/DL (3.4-5.0); ALBUMIN/GLOBULIN RATIO 0.8 (1.1-1.5); ALKALINE PHOSPHATASE 50 IU/L (46-116); ANION GAP 4 (8-16); ASPARTATE AMINO TRANSFERASE 28 U/L (10-37); BILIRUBIN,TOTAL 0.6 MG/DL (0.1-1.0); BLOOD UREA NITROGEN 20 MG/DL (7-18); BUN/CREATININE RATIO 35.1 (5.4-32.0); CALCIUM 7.7 MG/DL (8.5-10.1); CHLORIDE 100 MMOL/L (99-107); CREATININE 0.57 MG/DL (0.60-1.10); GLUCOSE 158 MG/DL (70-104); SODIUM 139 MMOL/L (135-145); TOTAL CARBON DIOXIDE 35.2 MMOL/L (24-32); TOTAL PROTEIN 6.1 G/DL (6.4-8.2); eGFR > 90 ML/MIN
[2017-10-03] MEDS: K and/or MAG REPLACEMENT MC SCH (08:00)
[2017-10-03] MEDS: lactobacillus rhamnosus 10,000 MMU CELLS/CAPSULE PO SCH ×2 (08:22→21:03)
[2017-10-03] MEDS: levetiracetam 250mg tablet PO SCH ×2 (08:22→21:05)
[2017-10-03] MEDS: pantoprazole 40mg Tablet.DR PO SCH (08:22)
[2017-10-03] MEDS: diltiazem CD 120mg capsule (once-daily) PO SCH (08:23)
[2017-10-03] MEDS: heparin, porcine 5000 units/ml vial SQ SCH ×2 (08:23→21:06)
[2017-10-03] MEDS: HYDROcodone/acetaminophen 10/325mg tab PO PRN (15:30)
[2017-10-03] MEDS: methylPREDNISolone sod succ/PF 40mg inj. IV SCH (15:31)
[2017-10-03] MEDS: insulin glargine (Lantus) pen - multi-dose SQ SCH (21:00)
[2017-10-03] MEDS: phenytoin sod ER 100mg capsule PO SCH (21:03)
[2017-10-03] MEDS: atorvastatin 20mg tablet PO SCH (21:03)
[2017-10-04] MEDS: methylPREDNISolone sod succ/PF 40mg inj. IV SCH ×4 (01:24→23:37)
[2017-10-04] MEDS: HYDROcodone/acetaminophen 5mg/325mg tablet PO PRN (02:22)
[2017-10-04 03:00] VITALS: BP 158/70
[2017-10-04] MEDS: HYDROcodone/acetaminophen 10/325mg tab PO PRN ×2 (04:51→23:37)
[2017-10-04 05:44] LABS: BASOPHILS % (AUTO) 0.2 % (0-1); EOSINOPHILS % (AUTO) 0.3 % (0-6); HEMATOCRIT 36.2 % (42.0-52.0); HEMOGLOBIN 12.6 g/dl (14.0-17.9); LYMPHOCYTES # (AUTO) 1.3 X10'3 (1.1-4.8); LYMPHOCYTES % (AUTO) 17.4 % (21-51); MEAN CORPUSCULAR HEMOGLOBIN 33.2 PG (27.0-31.0); MEAN CORPUSCULAR HGB CONC 34.8 % (33.0-36.5); MEAN CORPUSCULAR VOLUME 95.4 FL (78-98); MEAN PLATELET VOLUME 8.2 FL (7.4-10.4); MONOCYTES # (AUTO) 0.7 X10'3 (0-0.9); MONOCYTES % (AUTO) 9.4 % (2-12); NEUTROPHILS # (AUTO) 5.3 X10'3 (1.8-7.7); NEUTROPHILS % (AUTO) 72.7 % (42-75); PLATELET COUNT 130 X10'3 (140-440); RED CELL DISTRIBUTION WIDTH 12.9 % (11.5-14.5); WHITE BLOOD COUNT 7.3 X10'3 (4.5-11.0)
[2017-10-04 05:53] LABS: ALANINE AMINOTRANSFERASE 70 U/L (12-78); ALBUMIN 2.7 G/DL (3.4-5.0); ALBUMIN/GLOBULIN RATIO 0.8 (1.1-1.5); ALKALINE PHOSPHATASE 49 IU/L (46-116); ANION GAP 3 (8-16); ASPARTATE AMINO TRANSFERASE 28 U/L (10-37); BILIRUBIN,TOTAL 0.5 MG/DL (0.1-1.0); BLOOD UREA NITROGEN 20 MG/DL (7-18); BUN/CREATININE RATIO 34.5 (5.4-32.0); CALCIUM 7.6 MG/DL (8.5-10.1); CHLORIDE 100 MMOL/L (99-107); CREATININE 0.58 MG/DL (0.60-1.10); GLUCOSE 98 MG/DL (70-104); PHENYTOIN (DILANTIN) 14.6 UG/ML (10.0-20.0); PHOSPHORUS 3.3 MG/DL (2.3-4.5); POTASSIUM 3.7 MMOL/L (3.5-5.1); SODIUM 139 MMOL/L (135-145); TOTAL CARBON DIOXIDE 35.9 MMOL/L (24-32); TOTAL PROTEIN 6.1 G/DL (6.4-8.2); eGFR > 90 ML/MIN
[2017-10-04] MEDS ORDERED: LORazepam 2 mg/ml vial IV ONE ×2 (06:15→06:35)
[2017-10-04 07:00] VITALS: BP 143/79
[2017-10-04] MEDS: K and/or MAG REPLACEMENT MC SCH (08:00)
[2017-10-04] MEDS: heparin, porcine 5000 units/ml vial SQ SCH ×2 (08:00→20:41)
[2017-10-04] MEDS: lactobacillus rhamnosus 10,000 MMU CELLS/CAPSULE PO SCH ×2 (08:13→20:40)
[2017-10-04] MEDS: levetiracetam 250mg tablet PO SCH ×2 (08:13→20:40)
[2017-10-04] MEDS: pantoprazole 40mg Tablet.DR PO SCH (08:13)
[2017-10-04] MEDS: diltiazem CD 120mg capsule (once-daily) PO SCH (08:13)
[2017-10-04] MEDS ORDERED: diphenhydrAMINE 25mg capsule PO ONE (09:45)
[2017-10-04 11:00] VITALS: BP 150/90
[2017-10-04 15:00] VITALS: BP 128/56
[2017-10-04] MEDS: ipratropium/albuterol 3ml nebule NEB SCH ×2 (15:00→20:39)
[2017-10-04] MEDS: phenytoin sod ER 100mg capsule PO SCH (20:40)
[2017-10-04] MEDS: atorvastatin 20mg tablet PO SCH (20:40)
[2017-10-04] MEDS: insulin glargine (Lantus) pen - multi-dose SQ SCH (21:00)
[2017-10-04 23:00] VITALS: BP 135/70
[2017-10-05 03:00] VITALS: BP 140/84
[2017-10-05] MEDS: ipratropium/albuterol 3ml nebule NEB SCH ×2 (03:47→09:09)
[2017-10-05 05:30] LABS: BASOPHILS % (AUTO) 0.2 % (0-1); EOSINOPHILS # (AUTO) 0.1 X10'3 (0-0.9); EOSINOPHILS % (AUTO) 1.3 % (0-6); HEMATOCRIT 39.6 % (42.0-52.0); HEMOGLOBIN 13.8 g/dl (14.0-17.9); LYMPHOCYTES # (AUTO) 1.8 X10'3 (1.1-4.8); LYMPHOCYTES % (AUTO) 28.2 % (21-51); MEAN CORPUSCULAR HEMOGLOBIN 33.2 PG (27.0-31.0); MEAN CORPUSCULAR HGB CONC 34.9 % (33.0-36.5); MEAN CORPUSCULAR VOLUME 95.2 FL (78-98); MEAN PLATELET VOLUME 8.3 FL (7.4-10.4); MONOCYTES # (AUTO) 0.6 X10'3 (0-0.9); MONOCYTES % (AUTO) 9.4 % (2-12); NEUTROPHILS # (AUTO) 3.8 X10'3 (1.8-7.7); NEUTROPHILS % (AUTO) 60.9 % (42-75); PLATELET COUNT 138 X10'3 (140-440); RED BLOOD COUNT 4.16 X10'6 (4.70-6.10); RED CELL DISTRIBUTION WIDTH 13.3 % (11.5-14.5); WHITE BLOOD COUNT 6.3 X10'3 (4.5-11.0)
[2017-10-05 06:03] LABS: ALANINE AMINOTRANSFERASE 77 U/L (12-78); ALBUMIN 2.9 G/DL (3.4-5.0); ALBUMIN/GLOBULIN RATIO 0.8 (1.1-1.5); ALKALINE PHOSPHATASE 57 IU/L (46-116); ANION GAP 5 (8-16); ASPARTATE AMINO TRANSFERASE 26 U/L (10-37); BILIRUBIN,TOTAL 0.4 MG/DL (0.1-1.0); BLOOD UREA NITROGEN 21 MG/DL (7-18); BUN/CREATININE RATIO 30.4 (5.4-32.0); CALCIUM 7.9 MG/DL (8.5-10.1); CHLORIDE 100 MMOL/L (99-107); CREATININE 0.69 MG/DL (0.60-1.10); GLUCOSE 89 MG/DL (70-104); PHOSPHORUS 3.8 MG/DL (2.3-4.5); POTASSIUM 3.6 MMOL/L (3.5-5.1); SODIUM 141 MMOL/L (135-145); TOTAL CARBON DIOXIDE 36.4 MMOL/L (24-32); TOTAL PROTEIN 6.5 G/DL (6.4-8.2); eGFR > 90 ML/MIN
[2017-10-05 07:00] VITALS: BP 145/83
[2017-10-05] MEDS: K and/or MAG REPLACEMENT MC SCH (08:00)
[2017-10-05] MEDS: pantoprazole 40mg Tablet.DR PO SCH (08:29)
[2017-10-05] MEDS: methylPREDNISolone sod succ/PF 40mg inj. IV SCH (08:29)
[2017-10-05] MEDS: heparin, porcine 5000 units/ml vial SQ SCH (08:29)
[2017-10-05] MEDS: lactobacillus rhamnosus 10,000 MMU CELLS/CAPSULE PO SCH (08:29)
[2017-10-05] MEDS: levetiracetam 250mg tablet PO SCH (08:29)
[2017-10-05] MEDS: diltiazem CD 120mg capsule (once-daily) PO SCH (08:29)
[2017-10-05 11:00] VITALS: BP 120/78
[2017-10-05] MEDS ORDERED: HYDR-3972 PO (12:22)
[2017-10-05] MEDS ORDERED: ATI1T PO (12:22)
[2017-10-05] MEDS ORDERED: LEVE250T PO (12:22)
[2017-10-05] MEDS ORDERED: PRED10TA23 PO (12:22)
== END 2017-10-05 15:25 | disposition home health service (06) | DRG 133 ==
LOC: ER 00:34 → ED HOLD 05:47 → EDBEDREQ 08:54 → SUR 3N 09:56 → ICU 2S 09-30 17:50 → PCU 3S 10-03 12:20
PROVIDERS: ADMIT Internal Medicine; ATTEND Internal Medicine
PROC: B32T1ZZ Computerized Tomography (CT Scan) of Left Pulmonary Artery using Low Osmolar Contrast (ICD-10-PCS; 2017-09-28)
PROC: B3201ZZ Computerized Tomography (CT Scan) of Thoracic Aorta using Low Osmolar Contrast (ICD-10-PCS; 2017-09-28)
PROC: B32S1ZZ Computerized Tomography (CT Scan) of Right Pulmonary Artery using Low Osmolar Contrast (ICD-10-PCS; 2017-09-28)
PROC: 0T7D7ZZ Dilation of Urethra, Via Natural or Artificial Opening (ICD-10-PCS; 2017-09-30)
PROC: B3251ZZ Computerized Tomography (CT Scan) of Bilateral Common Carotid Arteries using Low Osmolar Contrast (ICD-10-PCS; 2017-09-30)
PROC: B32G1ZZ Computerized Tomography (CT Scan) of Bilateral Vertebral Arteries using Low Osmolar Contrast (ICD-10-PCS; 2017-09-30)
PROC: B3281ZZ Computerized Tomography (CT Scan) of Bilateral Internal Carotid Arteries using Low Osmolar Contrast (ICD-10-PCS; 2017-09-30)
PROC: 5A1945Z Respiratory Ventilation, 24-96 Consecutive Hours (ICD-10-PCS; principal; 2017-10-01)
PROC: 0BH18EZ Insertion of Endotracheal Airway into Trachea, Via Natural or Artificial Opening Endoscopic (ICD-10-PCS; 2017-10-01)
DX: J96.21 Acute and chronic respiratory failure with hypoxia (principal); G92 Toxic encephalopathy; J18.9 Pneumonia, unspecified organism; J44.0 Chronic obstructive pulmonary disease with (acute) lower respiratory infection; I11.0 Hypertensive heart disease with heart failure; R18.8 Other ascites; J44.1 Chronic obstructive pulmonary disease with (acute) exacerbation; I50.9 Heart failure, unspecified; N35.9 Urethral stricture, unspecified; J10.1 Influenza due to other identified influenza virus with other respiratory manifestations; D64.9 Anemia, unspecified; E11.9 Type 2 diabetes mellitus without complications; K74.60 Unspecified cirrhosis of liver; Z99.81 Dependence on supplemental oxygen; E78.00 Pure hypercholesterolemia, unspecified; B19.20 Unspecified viral hepatitis C without hepatic coma; F12.90 Cannabis use, unspecified, uncomplicated; R91.1 Solitary pulmonary nodule; G40.901 Epilepsy, unspecified, not intractable, with status epilepticus; F41.9 Anxiety disorder, unspecified; G89.4 Chronic pain syndrome; F17.200 Nicotine dependence, unspecified, uncomplicated; J20.9 Acute bronchitis, unspecified; E78.5 Hyperlipidemia, unspecified; F40.240 Claustrophobia; I25.10 Atherosclerotic heart disease of native coronary artery without angina pectoris; Z88.6 Allergy status to analgesic agent; Z79.899 Other long term (current) drug therapy; Z79.01 Long term (current) use of anticoagulants; Z79.82 Long term (current) use of aspirin; I25.2 Old myocardial infarction
CPT/HCPCS: 36415; 36600; 70460; 70496; 70551; 71045; 71275; 80048; 80053; 80061; 80177; 80185; 82803; 82948; 83036; 83605; 83735; 83880; 84100; 84484; 85018; 85025; 85610; 85730; 87040; 87070; 87502; 87503; 92616; 93005; 93306; 93880; 94002; 94003; 94640; 94760; 95816; 95951; 96361; 96365; 96366; 96375; 97116; 97161; 99291; A6209; A6212; A6213; A6250; A6258; A6449; A7015; C9113; J0456; J0696; J1165; J1644; J1815; J1885; J1953; J2060; J2270; J2704; J2920; J2930; J3480; J3490; J7030; Q0163; Q9967